=== PATIENT | female | born 1960 | race Caucasian/White ===

== ENCOUNTER → 2018-09-19 | Day surgery (SDC) | payer OTHER ==
[~2018-09-19] VITALS: Ht 162.6 cm; Wt 64.4 kg
[~2018-09-19] MED LIST: AUSTEDO9 MG PO; BENZTROPINE MES1 MG PO; BUMETANIDE 1 MG1 M1 PO; CHANTIX1 MG PO; ESTRACE2 M3 PO; GABAPENTIN 100100 MG PO; LIPITOR10 MG PO; METFORMIN HCL1000 MG PO; METOPROLOL SUC100 MG PO; MOVANTIK25 MG PO; MS CONTIN 60 MG60 M1 PO; NORVASC5 MG PO; OMEPRAZOLE 20 M20 M1 PO; OXYCODONE-ACET1 EACH PO; PILOCARPINE HCL5 M1 PO; PROAIR HFA8.5 GM INH; REQUIP 1 MG TABL1 M1 PO; ROZEREM 8 MG TAB8 M1 PO; SYNTHROID137 MC1 PO; THEO-24400 MG PO; TRELEGY ELLIPT1 EACH INH; VENLAFAXINE HC150 MG PO; WELLBUTRIN SR150 MG PO; ZANAFLEX4 MG PO
[2018-09-19 08:39] LABS: CALCIUM 8.8 mg/dL (8.5-10.1); CREATININE 0.8 mg/dL (0.6-1.0); POTASSIUM 3.9 mmol/L (3.5-5.1)
[2018-09-19 08:45] VITALS: BP 121/60
== END | disposition home or self-care (01) ==
LOC: OR 07:45
PROVIDERS: Ophthalmology
DX: H05.10 Unspecified chronic inflammatory disorders of orbit (principal); H05.89 Other disorders of orbit; I10 Essential (primary) hypertension; E11.9 Type 2 diabetes mellitus without complications; J43.9 Emphysema, unspecified; E78.5 Hyperlipidemia, unspecified; E03.9 Hypothyroidism, unspecified; G20 Parkinson's disease; F32.9 Major depressive disorder, single episode, unspecified; G47.30 Sleep apnea, unspecified; K21.9 Gastro-esophageal reflux disease without esophagitis; M54.5 Low back pain; G89.29 Other chronic pain; F17.210 Nicotine dependence, cigarettes, uncomplicated; Z90.49 Acquired absence of other specified parts of digestive tract; Z90.710 Acquired absence of both cervix and uterus; Z98.890 Other specified postprocedural states; Z85.828 Personal history of other malignant neoplasm of skin; Z96.611 Presence of right artificial shoulder joint; Z79.899 Other long term (current) drug therapy; Z98.84 Bariatric surgery status; Z85.818 Personal history of malignant neoplasm of other sites of lip, oral cavity, and pharynx; Z88.2 Allergy status to sulfonamides; Z88.6 Allergy status to analgesic agent; Z88.8 Allergy status to other drugs, medicaments and biological substances; Z79.891 Long term (current) use of opiate analgesic
CPT/HCPCS: 50010; 50101; 50386; 50398; 51636; 56531; 62110; 62900; 70005